=== PATIENT | female | born 1940 | race Hispanic/Latino ===

== ENCOUNTER 2018-01-02 13:16 | Emergency (ER) | payer MEDICARE, OTHER ==
[~2018-01-02 13:16] MED LIST: AMLO5TAB7 PO; ASPI-555 PO; FENO145T37 PO; LEVO137T2 PO; LISI40TA4 PO; MV-M1TAB20 PO; TRAM50TA4 PO
[2018-01-02] MEDS ORDERED: HYDROCODONE/ACETAMINOPHEN 10/325 MG TAB ONE (14:56)
== END 2018-01-02 15:24 | disposition home or self-care (01) ==
LOC: EDH 13:16
DX: S52.592A Other fractures of lower end of left radius, initial encounter for closed fracture (principal); S09.8XXA Other specified injuries of head, initial encounter; Z88.0 Allergy status to penicillin; W01.198A Fall on same level from slipping, tripping and stumbling with subsequent striking against other object, initial encounter; Y93.89 Activity, other specified; Y92.89 Other specified places as the place of occurrence of the external cause; Y99.8 Other external cause status
CPT/HCPCS: 29125; 70450; 71045; 72125; 73110

== ENCOUNTER 2018-01-14 06:39 | Day surgery (SDC) | payer OTHER ==
[2018-01-13 14:58] VITALS: BP 136/71
[2018-01-13 15:16] LABS: BASOPHILS % (AUTO) 0.7 % (0.0-5.0); EOSINOPHILS % (AUTO) 4.1 % (0.0-8.0); HEMATOCRIT 38.1 % (36-48); LYMPHOCYTES % (AUTO) 31.2 % (21.0-51.0); MEAN CORPUSCULAR HEMOGLOBIN 29.1 pg (27.0-33.0); MEAN CORPUSCULAR HGB CONC 32.8 g/dL (32.0-36.0); MEAN CORPUSCULAR VOLUME 88.8 fL (79-99); MONOCYTES % (AUTO) 8.8 % (3.0-13.0); NEUTROPHILS % (AUTO) 55.2 % (40.0-77.0); PLATELET COUNT (AUTO) 262 K/uL (130-400); RED CELL DISTRIBUTION WIDTH 13.3 % (11.0-15.5); WHITE BLOOD COUNT (AUTO) 8.2 K/uL (4.8-10.8)
[2018-01-13 15:41] LABS: CREATININE 0.8 mg/dL (0.5-1.5)
[2018-01-14] VITALS (13 sets, daily range): BP systolic 101–139; BP diastolic 46–77
[~2018-01-14] VITALS: Ht 154.9 cm; Wt 71.2 kg
[~2018-01-14 06:39] MED LIST changes: +ASCO500C18 PO; -MV-M1TAB20 PO; -TRAM50TA4 PO; +VITA400C70 PO; +VITAMIN B12 PO
[2018-01-14] MEDS ORDERED: LACTATED RINGERS 1000ML 1,000 ML IV ONE (07:21)
[2018-01-14] MEDS: CEFAZOLIN SODIUM 1 GM VIAL IVP ONE ×2 (07:38→08:50)
[2018-01-14] MEDS ORDERED: LIDOCAINE PF 2% 5ML ABBOJECT ONE (08:33)
[2018-01-14] MEDS ORDERED: ONDANSETRON HCL 4 MG/2 ML VIAL ONE (08:33)
[2018-01-14] MEDS ORDERED: MIDAZOLAM HCL 1 MG/ML 2ML VIAL ONE (08:34)
[2018-01-14] MEDS ORDERED: PROPOFOL 10 MG/ML 20ML VIAL IV ONE (08:34)
[2018-01-14] MEDS ORDERED: FENTANYL CITRATE PF 50 MCG/1 ML 2ML VIAL ONE (08:34)
[2018-01-14] MEDS ORDERED: CLINDAMYCIN PHOSPHATE 150 MG/ML 6ML VIAL ONE (09:02)
[2018-01-14] MEDS ORDERED: TYL3 PO (09:39)
[2018-01-14] MEDS ORDERED: MEPERIDINE-PF 25 MG/ML SYG ONE ×2 (09:39→09:59)
== END 2018-01-14 11:40 | disposition home or self-care (01) ==
LOC: DAH 06:39
PROVIDERS: ATTEND Orthopaedic Surgery
DX: S52.572A Other intraarticular fracture of lower end of left radius, initial encounter for closed fracture (principal); W18.30XA Fall on same level, unspecified, initial encounter; Y93.9 Activity, unspecified; Y92.89 Other specified places as the place of occurrence of the external cause; Y99.9 Unspecified external cause status; I10 Essential (primary) hypertension; E78.00 Pure hypercholesterolemia, unspecified; Z98.890 Other specified postprocedural states; Z90.49 Acquired absence of other specified parts of digestive tract; Z68.33 Body mass index [BMI] 33.0-33.9, adult; Z79.899 Other long term (current) drug therapy; Z87.891 Personal history of nicotine dependence; Z88.0 Allergy status to penicillin; E66.9 Obesity, unspecified; E07.9 Disorder of thyroid, unspecified; I45.10 Unspecified right bundle-branch block
CPT/HCPCS: 25606; 36415; 76000; 80048; 85025; 93005; A4649; A4930; A6223 ×2; C1713; J0690; J2001; J2175 ×2; J2250; J2405; J2704; J3010; J7120; Q4051

== ENCOUNTER 2021-12-04 18:05 | Emergency (ER) | payer OTHER ==
[~2021-12-04] VITALS: Ht 160 cm; Wt 71.2 kg
[~2021-12-04 18:05] MED LIST changes: +AMLO-257 PO; -AMLO5TAB7 PO; -ASPI-555 PO; +ASPI-556 PO; +FENO145T26 PO; -FENO145T37 PO; -LISI40TA4 PO; +LISI40TA9 PO; +TYL3 PO; +VITA-164 PO; -VITA400C70 PO
[2021-12-04 20:15] LABS: BASOPHILS % (AUTO) 0.7 % (0.0-5.0); HEMATOCRIT 41.8 % (36-48); LYMPHOCYTES % (AUTO) 39.4 % (21.0-51.0); MEAN CORPUSCULAR HGB CONC 32.1 g/dL (32.0-36.0); MEAN CORPUSCULAR VOLUME 90.5 fL (79-99); MONOCYTES % (AUTO) 10.1 % (3.0-13.0); NEUTROPHILS % (AUTO) 47.5 % (40.0-77.0); PLATELET COUNT (AUTO) 251 K/uL (130-400); RED BLOOD CELL COUNT(AUTO) 4.62 MIL/uL (4.00-5.50); RED CELL DISTRIBUTION WIDTH 12.6 % (11.0-15.5); WHITE BLOOD COUNT (AUTO) 7.5 K/uL (4.8-10.8)
[2021-12-04 20:16] LABS: APPEARANCE,URINE CLEAR (CLEAR); BILIRUBIN,URINE NEGATIVE (NEGATIVE); COLOR,URINE COLORLESS (YELLOW); GLUCOSE, URINE (UA) NEGATIVE (NEGATIVE); KETONES,URINE NEGATIVE (NEGATIVE); LEUKOCYTE ESTERASE ,URINE NEGATIVE Leu/uL (NEGATIVE); NITRATE,URINE NEGATIVE (NEGATIVE); OCCULT BLOOD,URINE NEGATIVE (NEGATIVE); PROTEIN,URINE NEGATIVE (NEGATIVE); UROBILINOGEN,URINE 0.2 mg/dL (0.2-1.0)
[2021-12-04] MEDS ORDERED: ACETAMINOPHEN WITH CODEINE 1 TAB TAB ONE (20:18)
[2021-12-04 20:27] LABS: CREATININE 1.1 mg/dL (0.5-1.5); POTASSIUM 4.4 mmol/L (3.5-5.1)
[2021-12-04 20:29] LABS: ALBUMIN 3.9 g/dL (3.5-5.0); TOTAL PROTEIN, SERUM 8.4 g/dL (6.0-8.3)
[2021-12-04] MEDS ORDERED: ACETAMINOPHEN WITH CODEINE 1 TAB TAB PO ONE (20:30)
[2021-12-04] MEDS ORDERED: TRAM50TA2 PO (22:00)
[2021-12-04 22:06] VITALS: BP 135/62
== END 2021-12-04 22:17 | disposition home or self-care (01) ==
LOC: EDH 18:05
DX: M79.662 Pain in left lower leg (principal); E78.00 Pure hypercholesterolemia, unspecified; I10 Essential (primary) hypertension; Z88.0 Allergy status to penicillin; Z88.8 Allergy status to other drugs, medicaments and biological substances; Z79.899 Other long term (current) drug therapy; Z79.82 Long term (current) use of aspirin; Z90.49 Acquired absence of other specified parts of digestive tract
CPT/HCPCS: 36415; 80053; 81003; 85025; 93971

== ENCOUNTER 2022-11-07 12:06 | Emergency (ER) | payer OTHER ==
[~2022-11-07] VITALS: Ht 149.9 cm; Wt 68.9 kg
[~2022-11-07 12:06] MED LIST changes: +TRAM50TA2 PO; -VITA-164 PO; +VITA-348 PO
[2022-11-07] MEDS ORDERED: LACTATED RINGERS 1000ML 1,000 ML IV ONE (12:30)
[2022-11-07 12:47] LABS: BASOPHILS # (AUTO) 0.05 K/uL (0.00-0.20); BASOPHILS % (AUTO) 0.7 % (0.0-5.0); EOSINOPHILS % (AUTO) 1.4 % (0.0-8.0); HEMATOCRIT 42.4 % (36-48); IMMATURE GRANULOCYTE ABSOLUTE 0.02 K/uL (0-1); LYMPHOCYTES # (AUTO) 1.9 K/uL (1.0-4.8); LYMPHOCYTES % (AUTO) 27.8 % (21.0-51.0); MEAN CORPUSCULAR HGB CONC 31.8 g/dL (32.0-36.0); MEAN CORPUSCULAR VOLUME 91.2 fL (79-99); MONOCYTES # (AUTO) 0.6 K/uL (0.1-1.0); MONOCYTES % (AUTO) 8.7 % (3.0-13.0); NEUTROPHILS # (AUTO) 4.2 K/uL (1.8-7.7); NEUTROPHILS % (AUTO) 61.1 % (40.0-77.0); PLATELET COUNT (AUTO) 263 K/uL (130-400); RED BLOOD CELL COUNT(AUTO) 4.65 MIL/uL (4.00-5.50); RED CELL DISTRIBUTION WIDTH 12.6 % (11.0-15.5); WHITE BLOOD COUNT (AUTO) 6.9 K/uL (4.8-10.8)
[2022-11-07 13:01] LABS: CREATININE 0.7 mg/dL (0.5-1.5); POTASSIUM 4.1 mmol/L (3.5-5.1)
[2022-11-07 13:02] LABS: APPEARANCE,URINE CLEAR (CLEAR); BILIRUBIN,URINE NEGATIVE (NEGATIVE); COLOR,URINE YELLOW (YELLOW); GLUCOSE, URINE (UA) NEGATIVE (NEGATIVE); KETONES,URINE NEGATIVE (NEGATIVE); LEUKOCYTE ESTERASE ,URINE 25 Leu/uL (NEGATIVE); NITRATE,URINE NEGATIVE (NEGATIVE); OCCULT BLOOD,URINE NEGATIVE (NEGATIVE); PH,URINE 5.5 (5.0-8.0); PROTEIN,URINE 20 mg/dL (NEGATIVE); UROBILINOGEN,URINE 0.2 mg/dL (0.2-1.0)
[2022-11-07 13:03] LABS: ADD UA MICROSCOPIC YES
[2022-11-07 13:05] LABS: ALBUMIN 3.9 g/dL (3.5-5.0); BILIRUBIN,TOTAL 0.4 mg/dL (0.2-1.0); TOTAL PROTEIN, SERUM 8.1 g/dL (6.0-8.3)
[2022-11-07 13:06] LABS: SQUAMOUS EPITHELIAL CELL,UR RARE /HPF (0-2)
[2022-11-07] MEDS ORDERED: KETOROLAC 30MG VIAL (30MG/ML) IVP ONE (14:00)
[2022-11-07] MEDS ORDERED: NITR100C4 PO (14:45)
[2022-11-07 14:50] VITALS: BP 149/89; PULSE 66; RESP 16; O2SAT 99
== END 2022-11-07 14:57 | disposition home or self-care (01) ==
LOC: EDH 12:06
DX: N39.0 Urinary tract infection, site not specified (principal); E78.00 Pure hypercholesterolemia, unspecified; I10 Essential (primary) hypertension; Z79.82 Long term (current) use of aspirin; Z79.890 Hormone replacement therapy; Z88.0 Allergy status to penicillin; Z90.49 Acquired absence of other specified parts of digestive tract
CPT/HCPCS: 99285; 74176; 96374; 96361; 80053; 85025; 81001; 36415; J7120; J1885